=== PATIENT | female | born 1990 | race Caucasian/White ===

== ENCOUNTER 2021-09-26 21:16 | Emergency (ER) | payer OTHER ==
[~2021-09-26 21:16] MED LIST: BACTRIM DS TAB1 EACH PO; NORCO 5-325 TA1 EACH PO
[2021-09-26] MEDS ORDERED: BACTRIM DS TAB1 EACH PO (23:21)
== END 2021-09-26 23:41 | disposition home or self-care (01) ==
LOC: FER 21:16
DX: L02.214 Cutaneous abscess of groin (principal); F17.200 Nicotine dependence, unspecified, uncomplicated; Z28.310 Unvaccinated for COVID-19
CPT/HCPCS: 87070; 87205

== ENCOUNTER 2021-09-28 15:53 | Day surgery (SDCO) | payer OTHER ==
[~2021-09-28] VITALS: Ht 157.5 cm; Wt 78.2 kg
[2021-09-28] MEDS ORDERED: DESVENLAFAXINE50 MG PO (17:06)
[2021-09-28 18:37] LABS: BUN/CREAT RATIO (CALC) 11.7 RATIO; CREATININE 0.77 mg/dL (0.51-0.95); POTASSIUM 3.1 mmol/L (3.5-5.1)
[2021-09-29 07:21] LABS: BASOPHIL 0.7 % (0-2); EOSINOPHIL 1.2 % (0-5); HCT 42.5 % (37.0-47.0); HGB 14.1 g/dl (12.5-16.0); LYMPHOCYTE 28.4 % (15-48); MCH 32.4 pg (25.0-31.0); MCHC 33.2 g/dL (32.0-36.0); MCV 97.7 fL (78.0-100.0); MONOCYTE 6.9 % (0-12); MPV 10.5 fL (6.0-9.5); NEUTROPHIL 61.6 % (41-80); NRBC 0; PLT 199 K/uL (150-400); RBC 4.35 M/uL (4.20-5.40); RDW 12.8 % (11.5-14.0); WBC 7.4 K/uL (4.0-10.5)
[2021-09-30 06:23] LABS: BASOPHIL 0.7 % (0-2); EOSINOPHIL 1.6 % (0-5); HCT 42.6 % (37.0-47.0); HGB 14.1 g/dl (12.5-16.0); LYMPHOCYTE 36.4 % (15-48); MCHC 33.1 g/dL (32.0-36.0); MCV 96.8 fL (78.0-100.0); MONOCYTE 7.9 % (0-12); MPV 10.1 fL (6.0-9.5); NEUTROPHIL 52.6 % (41-80); NRBC 0; PLT 196 K/uL (150-400); RDW 12.6 % (11.5-14.0); WBC 6.1 K/uL (4.0-10.5)
[2021-09-30 07:08] LABS: ALBUMIN 3.2 g/dL (3.4-5.0); BILIRUBIN - TOTAL 0.6 mg/dL (0.2-1.0); BUN/CREAT RATIO (CALC) 15.2 RATIO; CREATININE 0.66 mg/dL (0.51-0.95); GLOBULIN (CALCULATION) 3.4 g/dL; POTASSIUM 3.7 mmol/L (3.5-5.1); TOTAL PROTEIN 6.6 g/dL (6.4-8.2); VANCOMYCIN, TROUGH 5.8 ug/mL (10-20)
[2021-09-30] MEDS ORDERED: ZYVOX600 MG PO ×2 (07:54→11:47)
--- NOTE | 2021-09-30 11:11 | NUR ---
PT WENT DOWN FOR SURGERY AT 1027.
== END 2021-09-30 13:38 | disposition home or self-care (01) ==
LOC: FMS 15:53
PROVIDERS: Nurse Practitioner; ADMIT Allergy & Immunology Allergy
DX: L02.416 Cutaneous abscess of left lower limb (principal); N61.1 Abscess of the breast and nipple; F17.200 Nicotine dependence, unspecified, uncomplicated; Z20.822 Contact with and (suspected) exposure to COVID-19
CPT/HCPCS: 36415; 80048; 80053; 80202; 82550; 83036; 84703; 85025; G0378; J2250; J2704; J3010; J3370; J7050; J7120; U0002